=== PATIENT | female | born 1985 | race Caucasian/White ===

== ENCOUNTER 2021-01-14 08:14 | Emergency (ER) | payer BC, OTHER ==
[~2021-01-14] VITALS: Ht 160 cm; Wt 77.3 kg
[2021-01-14] MEDS ORDERED: sucralfate 1gm/10ml UD suspension PO STA (08:31)
[2021-01-14] MEDS ORDERED: LIDOcaine Viscous 15ml cup MM ONE (08:35)
[2021-01-14] MEDS ORDERED: mag hydrox/Alum hydrox/simeth 30ml oral suspension PO ONE (08:35)
[2021-01-14] MEDS ORDERED: sucralfate 1 gm tablet PO STA (08:41)
[2021-01-14] MEDS ORDERED: PANT-47 PO (09:01)
[2021-01-14 09:31] VITALS: BP 119/73
== END 2021-01-14 09:33 | disposition home or self-care (01) ==
LOC: ER 08:14
DX: K21.9 Gastro-esophageal reflux disease without esophagitis (principal)
CPT/HCPCS: 71045; 93005; 99283